=== PATIENT | male | born 1985 | race African-American/Black ===

== ENCOUNTER 2017-11-04 13:35 | Emergency (ER) | payer SELFPAY ==
[2017-11-04 13:50] VITALS: BP 147/93; PULSE 67; TEMP 98; BMI 28.1
[2017-11-04] MEDS ORDERED: DIPHTH,PERTUSS(ACELL),TET 0.5 ML DISP.SYRIN IM ONE (15:57)
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
== END 2017-11-04 16:26 | disposition home or self-care (01) ==
LOC: JERFT 13:35
PROC: 0JQF0ZZ Repair Left Upper Arm Subcutaneous Tissue and Fascia, Open Approach (ICD-10-PCS; principal; 2017-11-04)
DX: S41.112A Laceration without foreign body of left upper arm, initial encounter (principal); X99.1XXA Assault by knife, initial encounter; Y93.89 Activity, other specified; Y92.414 Local residential or business street as the place of occurrence of the external cause; Y99.8 Other external cause status; Y07.9 Unspecified perpetrator of maltreatment and neglect
CPT/HCPCS: 90715; 99282-25